=== PATIENT | male | born 1965 | race African-American/Black ===

== ENCOUNTER 2016-11-20 01:21 | Emergency (ER) | payer MEDICAID ==
[~2016-11-20] VITALS: Ht 175.3 cm; Wt 78.0 kg
[~2016-11-20 01:21] MED LIST: AMLO10TA80 PO; CYAN10009 PO; FOLI-43 PO; LORA10TA7 PO; MULT-1146 PO
[2016-11-20] MEDS ORDERED: SODIUM CHLORIDE 0.9% 1,000 ML IV ONE (01:55)
[2016-11-20] MEDS ORDERED: MORPHINE SULFATE 4 MG/ML CPJ (NOT FOR IM USE) IV STA (01:55)
[2016-11-20] MEDS ORDERED: ONDANSETRON HCL 4MG/2ML VIAL IV STA (01:55)
[2016-11-20 02:12] LABS: BASOPHILS % 0.3 % (0.0-2.0); HEMATOCRIT. 36.5 % (42.0-52.0); HEMOGLOBIN. 11.9 g/dL (14.0-18.0); MEAN CORPUSCULAR HEMOGLOBIN 29.3 pg (28.0-32.0); MEAN CORPUSCULAR VOLUME 89.6 fL (80.0-94.0); MEAN PLATELET VOLUME 9.3 fl (7.4-10.4); MONOCYTES % 12.9 % (2.0-8.0); NEUTROPHILS % 65.8 % (40.0-76.0); PLATELET 116 x1000/uL (130-400); RED BLOOD CELL COUNT 4.07 mill/uL (4.7-6.1)
[2016-11-20 02:19] LABS: CHLORIDE 98 mEq/L (98-107)
[2016-11-20 02:27] LABS: CARBON DIOXIDE 18 mEq/L (21-32)
[2016-11-20] MEDS ORDERED: INSULIN REGULAR (HUMULIN R) 300UNITS/3ML SUBCUT ONE (05:00)
[2016-11-20 06:00] VITALS: BP 120/71
[2016-11-20 06:57] LABS: CLARITY URINE CLEAR (CLEAR); COLOR URINE YELLOW (YELLOW); GLUCOSE URINE 3+ (NEGATIVE); KETONES URINE 3+ (NEGATIVE); LEUKOCYTE ESTERASE URINE NEGATIVE (NEGATIVE); NITRITE URINE NEGATIVE (NEGATIVE); OCCULT BLOOD URINE NEGATIVE (NEGATIVE); PROTEIN URINE TRACE (NEGATIVE); SPECIFIC GRAVITY URINE 1.031 (1.005-1.030); UROBILINOGEN URINE 0.2 E.U./dL (0.2-1.0)
== END 2016-11-20 06:28 | disposition home or self-care (01) ==
LOC: ER 01:21
DX: R10.9 Unspecified abdominal pain (principal); E11.9 Type 2 diabetes mellitus without complications; I10 Essential (primary) hypertension; E78.00 Pure hypercholesterolemia, unspecified; F17.210 Nicotine dependence, cigarettes, uncomplicated; Z79.4 Long term (current) use of insulin
CPT/HCPCS: 36415; 71010; 74176; 80053; 81001; 82962; 83690; 85025; 96361; 96372; 96374; 96375; 99285; J1815; J2270; J2405; J7030; Z7610